=== PATIENT | female | born 1940 | race Caucasian/White ===

== ENCOUNTER 2021-05-11 11:54 | Outpatient (RCR) | payer MEDICARE, SELFPAY ==
[2021-05-11] MEDS: ACETAMINOPHEN 325 MG TABLET 650 MG PO (12:17)
[2021-05-11] MEDS: diphenhydrAMINE HCl CAP 25 MG CAPSULE PO (12:17)
[2021-05-11] MEDS: FAMOTIDINE 20 MG TABLET PO (12:17)
[2021-05-11 12:20] VITALS: BP 165/86; PULSE 84; RESP 20; TEMP 37.1; O2SAT 98
[2021-05-11 13:51] VITALS: BP 167/76
--- NOTE | 2021-05-12 08:41 | PC.NURSE ---
Called Elizabeth and she is asking about the length of how long to take the Tylenol and Benadryl, otherwise she is doing well and has no other questions at this time.
== END 2021-05-11 17:00 ==
LOC: AMCINF 11:54
PROVIDERS: PCP Internal Medicine; Visit Provider Internal Medicine Hematology & Oncology
DX: U07.1 COVID-19 (principal)
CPT/HCPCS: A9270; M0245; Q0245